=== PATIENT | male | born 1990 | race Caucasian/White ===

== ENCOUNTER 2018-03-21 11:35 | Emergency (ER) | payer OTHER ==
[2018-03-21 11:43] VITALS: BP 131/88; PULSE 102; TEMP 98.2; BMI 28.2
--- NOTE | 2018-03-21 12:45 | PDOC ---
History of Present Illness - General Chief Complaint: Penile Drainage Stated Complaint: STD TESTING Time Seen by Provider: 03/21/18 11:56 History Source: Patient, [employer] Used (#[id number]) Exam Limitations: Clinical Condition - History of Present Illness Initial Comments: 03/21/18 13:17 Patient with no significant past medication present with complaint of one-week history of rash to penis and left upper back. Patient is saw PCP a week ago about rash and was given Valtrex for possible herpes outbreak. Patient reported all lab work included HIV and herpes labs done by PCP was negative. Patient was seen again in urgent care for same symptoms and reported he was treated with a cream but does not recall the name and advised to follow-up with dermatology but [place] and thought he could come to the emergency room to see the dermatology. Patient report he has follow- up apt with PCP in 4 days 03/21/18 13:21 Timing/Duration: 1 week Past History - Past Medical History Allergies/Adverse Reactions: Allergies Allergy/AdvReac Type Severity Reaction Status Date / Time ibuprofen [From Motrin] Allergy Verified 03/21/18 11:39 Home Medications: Ambulatory Orders Clotrimazole/Betamet Diprop [Lotrisone Cream (Small Tube)] 1 applic TP BID PRN # 1 tube 03/21/18 Ketoconazole 2% Cream [Nizoral 2% Cream -] 1 applic TP BID #1 cream 03/21/18 Valacyclovir HCl [Valtrex -] 1,000 mg PO BID 5 Days #10 tablet 03/21/18 COPD: No - Immunization History Immunization Up to Date: Yes - Suicide/Smoking/Psychosocial Hx Smoking History: Never smoked Hx Alcohol Use: No Drug/Substance Use Hx: No Review of Systems - Review of Systems Able to Perform ROS?: Yes Is the patient limited Barbadian proficient: No Constitutional: No: Chills, Fever Respiratory: No: Symptoms reported Cardiac (ROS): No: Symptoms Reported ABD/GI: No: Symptoms Reported, Nausea, Vomiting Integumentary: Yes: Pruritus, Rash (penis and left upper back) Neurological: No: Symptoms reported All Other Systems: Reviewed and Negative *Physical Exam - Vital Signs Last Vital Signs Temp Pulse Resp BP Pulse Ox 98.2 F 102 H 16 131/88 96 03/21/18 11:40 03/21/18 11:40 03/21/18 11:40 03/21/18 11:40 03/21/18 11:40 - Physical Exam Comments: 03/21/18 13:22 GENERAL: Well developed, well nourished. Awake and alert. No acute distress. HEENT: Normocephalic, atraumatic. PERRLA, EOMI. No conjunctival pallor. Sclera are non-icteric. Moist mucous membranes. Oropharynx is clear. NECK: Supple. Full ROM. CARDIOVASCULAR: Regular rate and rhythm. No murmurs, rubs, or gallops. Distal pulses are 2+ and symmetric. PULMONARY: No evidence of respiratory distress. Lungs clear to auscultation bilaterally. No wheezing, rales or rhonchi. ABDOMINAL: Soft. Non-tender. Non-distended. No rebound or guarding. No organomegaly. Normoactive bowel sounds. SKIN: 2 small erupted erythematous lesions on gland of uncircumcised penis. diffused guttate erythematous rash to left upper back w/o excoriations. NEUROLOGICAL: Alert, awake, appropriate. Gait is normal without ataxia. PSYCHIATRIC: Cooperative. Good eye contact. Appropriate mood 03/21/18 13:30 General Appearance: Yes: Nourished, Appropriately Dressed. No: Apparent Distress Moderate Sedation - Procedure Monitoring Vital Signs: Procedure Monitoring Vital Signs Temperature 98.2 F 03/21/18 11:40 Pulse Rate 102 H 03/21/18 11:40 Respiratory Rate 16 03/21/18 11:40 Blood Pressure 131/88 03/21/18 11:40 O2 Sat by Pulse Oximetry (%) 96 03/21/18 11:40 Medical Decision Making - Medical Decision Making 03/21/18 13:22 Patient with no significant past medication present with complaint of one-week history of rash to left upper back and penis. Exam significant for interrupted erythematous rash to gland of uncircumcised penis consistent with herpes virus rash. Exams also shows diffuse guttate erythematous rash diffusely on the left upper back without excoriations. Swab of Penile lesion taken for viral culture. No other STI testing done given his was done couple days ago and was negative according to patient. Patient stable for oupt treatment with dermatology follow-up. *DC/Admit/Observation/Transfer Diagnosis at time of Disposition: Dermatitis, Penile rash - Discharge Dispostion Disposition: HOME Condition at time of disposition: Stable Decision to Admit order: No - Prescriptions Prescriptions: Clotrimazole/Betamet Diprop [Lotrisone Cream (Small Tube)] 1 applic TP BID PRN # 1 tube PRN Reason: rash Ketoconazole 2% Cream [Nizoral 2% Cream -] 1 applic TP BID #1 cream Valacyclovir HCl [Valtrex -] 1,000 mg PO BID 5 Days #10 tablet - Referrals Referrals: Vince Prado MD [Primary Care Provider] - Hunter Meadows MD [Non Staff, Medical] - - Patient Instructions Printed Discharge Instructions: Herpes Simplex Virus Testing Additional Instructions: Take medication as prescribed. You will be contacted with lab results. Follow- up with referred dermatology Dr. Meadows as instructed Print Language: IRAQI - Post Discharge Activity
== END 2018-03-21 12:56 | disposition home or self-care (01) ==
LOC: JERFT 11:35
DX: L30.9 Dermatitis, unspecified (principal); R21 Rash and other nonspecific skin eruption; Z11.3 Encounter for screening for infections with a predominantly sexual mode of transmission
CPT/HCPCS: 87252; 99281-25